=== PATIENT | female | born 1945 | race Caucasian/White ===

== ENCOUNTER 2020-10-12 13:50 | Emergency (ER) | payer OTHER, MEDICARE ==
[2020-10-12 14:09] VITALS: BP 154/83; PULSE 71; TEMP 98.6; BMI 26.5
== END 2020-10-12 15:59 | disposition home or self-care (01) ==
LOC: FER 13:50
DX: S09.90XA Unspecified injury of head, initial encounter (principal); S63.502A Unspecified sprain of left wrist, initial encounter
CPT/HCPCS: 70450-TC; 73110-TC-LT-FY; 99284-25